=== PATIENT | male | born 1965 | race Caucasian/White ===

== ENCOUNTER 2022-04-20 21:55 | Emergency (ER) | payer BC ==
[~2022-04-20] VITALS: Ht 185.4 cm; Wt 102.1 kg
[~2022-04-20 21:55] MED LIST: ACET325 PO; DICMIS75EC PO; HYDR1TAB94 PO; META800 PO; NAPR250; OMEP10ER; OMEP20ER PO; OXYACE5T PO; PANT20; PANT40; PANT40 PO; SERT100; SERT50; SUMA25 PO; TEMA7.5; ZEBUTAL 50-3251 EAC1; ZEBUTAL PO; [UNRECOGNIZED DRUG - REMARK]
== END 2022-04-21 01:20 | disposition home or self-care (01) ==
LOC: ER 21:55
DX: S70.12XA Contusion of left thigh, initial encounter (principal); W22.8XXA Striking against or struck by other objects, initial encounter; Z88.6 Allergy status to analgesic agent; Z79.899 Other long term (current) drug therapy
CPT/HCPCS: 93971; 99283-25; A9270

== ENCOUNTER → 2022-07-26 | Outpatient (CLI) | payer BC | LOC: LAB SHORT 17:00 → LAB 17:00 | DX: J02.9 Acute pharyngitis, unspecified (principal) | CPT/HCPCS: 87077; 87081; 87185 ==